=== PATIENT | male | born 1965 | race Caucasian/White ===

== ENCOUNTER 2019-12-10 08:16 | Inpatient (IN) ==
[2019-12-10] MEDS: Dexmedetomidine HCl 400 MCG/100 ML MLS IVC SCH ×3 (10:30→23:56)
[2019-12-10] MEDS ORDERED: 0.9 % Sodium Chloride 1,000 ML ONE (10:38)
[2019-12-10] MEDS ORDERED: Dexmedetomidine HCl 400 MCG/100 ML MLS IVC ONE (10:43)
[2019-12-10] MEDS ORDERED: Naloxone 0.4 MG/ML INJ IVP PRN (11:01)
[2019-12-10] MEDS ORDERED: Artificial Tears SOLN 15 ML BOTTLE BOTH EYES PRN (11:01)
[2019-12-10] MEDS ORDERED: 0.9 % Sodium Chloride 1,000 ML IVC SCH (11:15)
[2019-12-10] MEDS ORDERED: *HR* LORazepam 2 MG/ML VIAL ONE (11:16)
[2019-12-10 11:21] LABS: ABG Base Excess -9 mEq/L (-2 to 3); ABG HCO3 18 mEq/L (21-27); ABG Oxygen Saturation 93 % (95-98); ABG PCO2 38 mmHg (35-45); ABG PH 7.27 pH Units (7.32-7.45); ABG PO2 75 mmHg (85-104); ABG TCO2 19 mEq/L (20-26); Blood Gas Modality AF; Blood Gas VT 550 cc
[2019-12-10] MEDS: Norepinephrine 4 MG/254 ML IV.SOLN IVC SCH ×3 (11:40→17:55)
[2019-12-10] MEDS ORDERED: *HR* Midazolam HCl 5 MG/5 ML VIAL IVP ONE ×3 (12:19→12:54)
[2019-12-10] MEDS ORDERED: 0.9 % Sodium Chloride 1,000 ML IVC ONE (12:20)
[2019-12-10] MEDS ORDERED: Sodium Bicarbonate 50 MEQ/50 ML VIAL ONE (12:45)
[2019-12-10] MEDS: FentaNYL (PF) 1,000 MCG/100 ML IV.SOLN IVC SCH ×2 (12:58→19:20)
[2019-12-10] MEDS ORDERED: levoFLOXacin 750 MG/150 ML 750 MG/150 ML BAG IVPB SCH (13:00)
[2019-12-10] MEDS ORDERED: Azithromycin 500 MG in 0.9 % Sodium Chloride 250 ML IVPB SCH (13:00)
[2019-12-10 13:28] LABS: ABG Base Excess -10 mEq/L (-2 to 3); ABG HCO3 16 mEq/L (21-27); ABG Oxygen Saturation 99 % (95-98); ABG PCO2 34 mmHg (35-45); ABG PH 7.28 pH Units (7.32-7.45); ABG PO2 138 mmHg (85-104); ABG TCO2 17 mEq/L (20-26); Blood Gas Modality AF; Blood Gas VT 500 cc
[2019-12-10] MEDS ORDERED: *HR* Heparin 5,000 UNIT/ML VIAL SQ SCH (14:00)
[2019-12-10] MEDS: Artificial Tears SOLN 15 ML BOTTLE BOTH EYES SCH ×4 (14:06→23:23)
[2019-12-10 14:14] LABS: Basophils % 0.1 %; Eosinophils % 0.1 %; Hemoglobin 13.6 g/dL (12.9-16.9); Immature Granulocytes % 1.9 % (0-4); Lymphocytes # 1.4 K/mcL (0.6-4.6); Lymphocytes % 9.9 %; Mean Corpuscular HGB Conc 30.9 g/dL (31.6-35.5); Mean Corpuscular Hemoglobin 30.5 pg (28.0-33.3); Mean Corpuscular Volume 98.7 fL (83.0-100.0); Mean Platelet Volume 10.3 fL (9.4-12.4); Monocytes # 0.7 K/mcL (0.0-1.3); Monocytes % 4.7 %; Neutrophils # 12.1 K/mcL (1.6-8.9); Platelet Count 173 K/mcL (140-400); Red Blood Count 4.46 M/mcL (4.19-5.50); Red Cell Distribution Width 13.1 % (11.5-14.5); Segmented Neutrophils % 83.3 %; White Blood Count 14.6 K/mcL (4.3-11.1)
[2019-12-10 14:15] LABS: Adenovirus F 40/41 PCR Not detected (Not detect); Astrovirus PCR Not detected (Not detect); C.difficile Toxin A/B Gene PCR Not detected (Not detect); Campylobacter by PCR Not detected (Not detect); Cryptosporidium by PCR Not detected (Not detect); Cyclospora cayetanensis PCR Not detected (Not detect); E. coli O157 by PCR Not detected (Not detect); Entamoeba histolytica PCR Not detected (Not detect); Enteroaggregative E.coli(EAEC) Not detected (Not detect); Enteropathogenic E.coli(EPEC) Not detected (Not detect); Enterotoxigenic E.coli (ETEC) Not detected (Not detect); Giardia lamblia PCR Not detected (Not detect); Norovirus GI/GII PCR Not detected (Not detect); Plesiomonas shigelloides PCR Not detected (Not detect); Rotavirus A PCR Not detected (Not detect); Salmonella PCR Not detected (Not detect); Sapovirus PCR Not detected (Not detect); Shig/EnteroinvasiveE coli EIEC Not detected (Not detect); Shigalike tox-prod E coli STEC Not detected (Not detect); Vibrio PCR Not detected (Not detect); Vibrio cholerae PCR Not detected (Not detect); Yersinia enterocolitica PCR Not detected (Not detect)
[2019-12-10 14:24] LABS: INR 1.1; Prothrombin Time 12.3 Seconds (9.4-12.1)
[2019-12-10 14:27] LABS: Activated Partial Thrombo Time 28.9 Seconds (26.0-36.0)
[2019-12-10] MEDS ORDERED: Calcium Chloride 2,000 MG in 0.9 % Sodium Chloride 100 ML IVPB ONE (14:31)
[2019-12-10] MEDS ORDERED: Thiamine (B-1) 100 MG in 0.9 % Sodium Chloride 50 ML IVPB STA (14:31)
[2019-12-10 14:40] LABS: BUN/Creatinine Ratio 12 (6-26); Blood Urea Nitrogen 26 mg/dL (6-20); Calcium 6.2 mg/dL (8.6-10.3); Carbon Dioxide 17 mEq/L (23-29); Chloride 115 mEq/L (98-107); Ethanol < 10 mg/dL (Less than 10); Glucose 93 mg/dL (70-105); Magnesium 1.9 mg/dL (1.6-2.6); Osmolality,Calculated 302 (280-300); Phosphorous 3.7 mg/dL (2.7-4.5); Potassium 5.1 mEq/L (3.5-5.1); Sodium 144 mEq/L (136-145); eGFR For African Americans 40 (> 60); eGFR For Non-African Americans 33 (> 60)
[2019-12-10] MEDS: Pantoprazole 40 MG VIAL IVP SCH (14:48)
[2019-12-10 15:07] LABS: Alanine Aminotransferase 58 Units/L (7-52); Albumin 2.8 g/dL (3.5-5.7); Albumin/Globulin Ratio 1.3 (1.1-2.2); Alkaline Phosphatase 59 Units/L (34-104); Aspartate Amino Transferase 127 Units/L (13-39); Bilirubin,Direct 0.2 mg/dL (0.0-0.2); Bilirubin,Indirect 0.3 mg/dL (0.0-1.0); Bilirubin,Total 0.5 mg/dL (0.3-1.0); Globulin 2.1 g/dL (2.4-3.5); Lipase 23 Units/L (11-82); Total Protein 4.9 g/dL (6.4-8.9); Troponin I 3.66 ng/mL (< 0.04)
[2019-12-10] MEDS ORDERED: Aspirin 81 MG TAB.CHEW GTUBE ONE (15:08)
[2019-12-10] MEDS ORDERED: *HR* Heparin 5,000 UNIT/ML VIAL IVP PRN ×2 (15:08)
[2019-12-10] MEDS ORDERED: *HR* Heparin 5,000 UNIT/ML VIAL IVP ONE (15:08)
[2019-12-10 15:09] LABS: ABG Base Excess -16 mEq/L (-2 to 3); ABG HCO3 13 mEq/L (21-27); ABG Oxygen Saturation 93 % (95-98); ABG PCO2 39 mmHg (35-45); ABG PH 7.13 pH Units (7.32-7.45); ABG PO2 87 mmHg (85-104); ABG TCO2 14 mEq/L (20-26); Blood Gas Modality AF; Blood Gas VT 500 cc
[2019-12-10] MEDS ORDERED: Sodium Bicarbonate 50 MEQ/50 ML VIAL IVP ONE (15:09)
[2019-12-10] MEDS: EPINEPHrine 1 MG in D5% in Water 250 ML IVC SCH ×2 (15:13→21:20)
[2019-12-10 15:37] LABS: VBG HCO3 14 mEq/L (21-27); VBG PCO2 63 mmHg (41-51); VBG PH 6.96 pH Units (7.32-7.42); VBG PO2 50 mmHg (25-50)
[2019-12-10] MEDS: Heparin 25,000 UNIT/250 ML D5W 25,000 UNIT/250 ML IV.SOLN IVC SCH (15:43)
[2019-12-10] MEDS: Hydrocortisone Sodium Succ 100 MG/2 ML VIAL IVP SCH ×2 (16:49→23:30)
[2019-12-10] MEDS: Aztreonam 1,000 MG in Water for inj. (sterile) 10 ML IVP SCH ×2 (16:49→23:27)
[2019-12-10] MEDS: MetroNIDAZOLE 500 MG/100 ML 500 MG/100 ML BAG IVPB SCH ×2 (16:52→23:33)
[2019-12-10 17:17] LABS: Hematocrit 41.1 % (37.5-50.1); Hemoglobin 12.9 g/dL (12.9-16.9); Mean Corpuscular HGB Conc 31.4 g/dL (31.6-35.5); Mean Corpuscular Hemoglobin 30.8 pg (28.0-33.3); Mean Corpuscular Volume 98.1 fL (83.0-100.0); Mean Platelet Volume 10.8 fL (9.4-12.4); Platelet Count 161 K/mcL (140-400); Red Blood Count 4.19 M/mcL (4.19-5.50); Red Cell Distribution Width 13.2 % (11.5-14.5); White Blood Count 19.2 K/mcL (4.3-11.1)
[2019-12-10 17:25] LABS: Heparin anti-factor XA UFH 0.9 IU/mL (0.30-0.70); INR 1.2
[2019-12-10] MEDS: Chlorhexidine Rinse 15 ML MOUTHWASH MM SCH (20:05)
[2019-12-10] MEDS ORDERED: 0.9 % Sodium Chloride 500 ML IVC ONE (20:43)
[2019-12-10] MEDS ORDERED: 0.9 % Sodium Chloride 500 ML IVC SCH (20:45)
[2019-12-10] MEDS: Norepinephrine 8 MG in 0.9 % Sodium Chloride 250 ML IVC SCH (20:50)
[2019-12-11] MEDS: FentaNYL (PF) 1,000 MCG/100 ML IV.SOLN IVC SCH ×5 (00:05→20:15)
[2019-12-11] MEDS: EPINEPHrine 1 MG in D5% in Water 250 ML IVC SCH (01:55)
[2019-12-11] MEDS ORDERED: 0.9 % Sodium Chloride 1,000 ML IVC SCH (02:15)
[2019-12-11] MEDS: Artificial Tears SOLN 15 ML BOTTLE BOTH EYES SCH ×5 (03:31→21:14)
[2019-12-11 04:07] LABS: ABG Base Excess -16 mEq/L (-2 to 3); ABG HCO3 14 mEq/L (21-27); ABG Oxygen Saturation 98 % (95-98); ABG PCO2 44 mmHg (35-45); ABG PO2 145 mmHg (85-104); ABG TCO2 15 mEq/L (20-26); Blood Gas Modality AF; Blood Gas VT 500 cc
[2019-12-11 04:19] LABS: Basophils % 0.2 %; INR 1.3; Lymphocytes % 4.9 %; Mean Corpuscular HGB Conc 32.3 g/dL (31.6-35.5); Mean Corpuscular Hemoglobin 31.2 pg (28.0-33.3); Monocytes % 3.6 %; Prothrombin Time 14.7 Seconds (9.4-12.1); Red Cell Distribution Width 13.2 % (11.5-14.5)
[2019-12-11 04:21] LABS: Basophils # 0.1 K/mcL (0.0-0.2); Eosinophils # 0.2 K/mcL (0.0-0.6); Eosinophils % 0.6 %; Hematocrit 43.1 % (37.5-50.1); Hemoglobin 13.9 g/dL (12.9-16.9); Immature Granulocytes % 1.3 % (0-4); Lymphocytes # 1.3 K/mcL (0.6-4.6); Mean Corpuscular Volume 96.9 fL (83.0-100.0); Mean Platelet Volume 11.2 fL (9.4-12.4); Neutrophils # 24.1 K/mcL (1.6-8.9); Platelet Count 187 K/mcL (140-400); Red Blood Count 4.45 M/mcL (4.19-5.50); Segmented Neutrophils % 89.4 %
[2019-12-11 04:54] LABS: Albumin/Globulin Ratio 1.3 (1.1-2.2); Bilirubin,Total 0.4 mg/dL (0.3-1.0); Calcium 7.1 mg/dL (8.6-10.3); Globulin 2.4 g/dL (2.4-3.5); Magnesium 1.8 mg/dL (1.6-2.6); Phosphorous 4.8 mg/dL (2.7-4.5); Potassium 5.4 mEq/L (3.5-5.1); Total Protein 5.4 g/dL (6.4-8.9)
[2019-12-11 05:03] LABS: Platelet Estimate Normal (Normal)
[2019-12-11] MEDS: Norepinephrine 8 MG in 0.9 % Sodium Chloride 250 ML IVC SCH (07:27)
[2019-12-11] MEDS ORDERED: Calcium Gluconate 1gm/50mL 1 GM/50 ML BAG IVPB ONE (07:46)
[2019-12-11] MEDS ORDERED: Calcium Chloride 1,000 MG in 0.9 % Sodium Chloride 100 ML IVPB ONE (08:01)
[2019-12-11] MEDS: Hydrocortisone Sodium Succ 100 MG/2 ML VIAL IVP SCH ×3 (08:02→23:57)
[2019-12-11] MEDS: Dexmedetomidine HCl 400 MCG/100 ML MLS IVC SCH (08:02)
[2019-12-11] MEDS: Pantoprazole 40 MG VIAL IVP SCH ×2 (08:02→21:14)
[2019-12-11] MEDS: Chlorhexidine Rinse 15 ML MOUTHWASH MM SCH ×2 (08:03→21:14)
[2019-12-11 08:25] LABS: Blood Gas VT 500 cc; Mixed Venous Blood pCO2 46 mmHg (44-46); Mixed Venous Blood pH 7.22 pH Units (7.34-7.36); Mixed Venous Blood pO2 44 mmHg (35-45)
[2019-12-11] MEDS: Thiamine (B-1) 100 MG in 0.9 % Sodium Chloride 50 ML IVPB SCH (08:37)
[2019-12-11] MEDS: Midazolam HCl 50 MG/100 ML IV.SOLN IVC SCH (08:44)
[2019-12-11] MEDS: Meropenem 1,000 MG in 0.9 % Sodium Chloride Mini Bag 100 ML IVPB SCH ×2 (10:22→17:31)
[2019-12-11 10:56] LABS: Estimated Average Glucose 120 mg/dl
[2019-12-11 11:20] LABS: Calcium 7.6 mg/dL (8.6-10.3); Potassium 5.2 mEq/L (3.5-5.1); Troponin I 2.8 ng/mL (< 0.04)
[2019-12-11] MEDS: Sodium Bicarbonate 150 MEQ in D5% in Water 1,000 ML IVC SCH (11:43)
[2019-12-11 18:27] LABS: Calcium 7.7 mg/dL (8.6-10.3); Potassium 4.5 mEq/L (3.5-5.1)
[2019-12-11 18:30] LABS: Troponin I 2.1 ng/mL (< 0.04)
[2019-12-11 18:48] LABS: Hematocrit 35.4 % (37.5-50.1)
[2019-12-12] MEDS: Artificial Tears SOLN 15 ML BOTTLE BOTH EYES SCH ×7 (00:01→23:20)
[2019-12-12] MEDS: FentaNYL (PF) 1,000 MCG/100 ML IV.SOLN IVC SCH ×2 (01:55→07:14)
[2019-12-12] MEDS: Sodium Bicarbonate 150 MEQ in D5% in Water 1,000 ML IVC SCH ×2 (03:45→11:32)
[2019-12-12 04:10] LABS: ABG Base Excess -1 mEq/L (-2 to 3); ABG HCO3 21 mEq/L (21-27); ABG Oxygen Saturation 99 % (95-98); ABG PCO2 27 mmHg (35-45); ABG PO2 103 mmHg (85-104); ABG TCO2 22 mEq/L (20-26); Blood Gas Modality AF; Blood Gas VT 500 cc
[2019-12-12] MEDS: Heparin 25,000 UNIT/250 ML D5W 25,000 UNIT/250 ML IV.SOLN IVC SCH ×2 (04:52→11:31)
[2019-12-12 05:02] LABS: Albumin 2.4 g/dL (3.5-5.7); Albumin/Globulin Ratio 1.3 (1.1-2.2); Bilirubin,Direct 0.2 mg/dL (0.0-0.2); Bilirubin,Indirect 0.4 mg/dL (0.0-1.0); Bilirubin,Total 0.6 mg/dL (0.3-1.0); Calcium 7.4 mg/dL (8.6-10.3); Globulin 1.9 g/dL (2.4-3.5); Magnesium 1.7 mg/dL (1.6-2.6); Phosphorous 1.6 mg/dL (2.7-4.5); Potassium 3.9 mEq/L (3.5-5.1); Total Protein 4.3 g/dL (6.4-8.9); Troponin I 1.37 ng/mL (< 0.04)
[2019-12-12] MEDS: Meropenem 1,000 MG in 0.9 % Sodium Chloride Mini Bag 100 ML IVPB SCH ×2 (05:02→17:23)
[2019-12-12 05:53] LABS: Hematocrit 32.6 % (37.5-50.1); Hemoglobin 11.1 g/dL (12.9-16.9); Mean Corpuscular Hemoglobin 30.7 pg (28.0-33.3); Mean Corpuscular Volume 90.1 fL (83.0-100.0); Mean Platelet Volume 11.4 fL (9.4-12.4); Platelet Count 121 K/mcL (140-400); Red Blood Count 3.62 M/mcL (4.19-5.50); Red Cell Distribution Width 13.2 % (11.5-14.5)
[2019-12-12 06:22] LABS: Monocytes # 0.6 K/mcL (0.0-1.3); Neutrophils # 11.5 K/mcL (1.6-8.9); Platelet Estimate Slight Decrease (Normal)
[2019-12-12] MEDS ORDERED: Albumin 25% 25gram/100mL 25 GM/100 ML IV.SOLN IVPB ONE (06:59)
[2019-12-12] MEDS ORDERED: Calcium Chloride 1,000 MG in 0.9 % Sodium Chloride 100 ML IVPB ONE (07:00)
[2019-12-12] MEDS ORDERED: Potassium Phosphate 44 MEQ in 0.9 % Sodium Chloride 250 ML IVPB ONE (07:00)
[2019-12-12] MEDS: Midazolam HCl 50 MG/100 ML IV.SOLN IVC SCH (07:13)
[2019-12-12] MEDS: Pantoprazole 40 MG VIAL IVP SCH ×2 (07:42→21:22)
[2019-12-12] MEDS: Hydrocortisone Sodium Succ 100 MG/2 ML VIAL IVP SCH ×3 (07:42→23:21)
[2019-12-12] MEDS: Chlorhexidine Rinse 15 ML MOUTHWASH MM SCH ×2 (07:42→21:22)
[2019-12-12] MEDS: Thiamine (B-1) 100 MG in 0.9 % Sodium Chloride 50 ML IVPB SCH (09:00)
[2019-12-12 10:00] LABS: ABG Base Excess 0 mEq/L (-2 to 3); ABG HCO3 25 mEq/L (21-27); ABG Oxygen Saturation 98 % (95-98); ABG PCO2 39 mmHg (35-45); ABG PO2 99 mmHg (85-104); ABG TCO2 26 mEq/L (20-26); Blood Gas Modality ASSIST CONTROL; Blood Gas VT 500 cc
[2019-12-12] MEDS: Albumin Human 5% 12.5 GM/250 ML IV.SOLN IVPB ONE ×3 (11:29→17:01)
[2019-12-12] MEDS ORDERED: Norepinephrine 4 MG/254 ML IV.SOLN IVC SCH (11:30)
[2019-12-12 11:35] LABS: Hematocrit 32.5 % (37.5-50.1); Hemoglobin 10.9 g/dL (12.9-16.9)
[2019-12-12] MEDS: FentaNYL (PF) 2,500 MCG/50 ML IV.SOLN IVC SCH (11:40)
[2019-12-12] MEDS ORDERED: levoFLOXacin 750 MG/150 ML 750 MG/150 ML BAG IVPB SCH (14:00)
[2019-12-12] MEDS ORDERED: Furosemide 20 MG/2 ML VIAL IVP ONE (15:51)
[2019-12-12] MEDS ORDERED: Albumin Human 5% 25.0 GM/500 ML IV.SOLN ONE (15:55)
[2019-12-12] MEDS: Pantoprazole 40 MG in 0.9 % Sodium Chloride Mini Bag 100 ML IVC SCH ×2 (16:17→21:23)
[2019-12-12] MEDS: Norepinephrine 8 MG in 0.9 % Sodium Chloride 250 ML IVC SCH (20:14)
[2019-12-13] MEDS: FentaNYL (PF) 2,500 MCG/50 ML IV.SOLN IVC SCH (02:23)
[2019-12-13] MEDS: Midazolam HCl 50 MG/100 ML IV.SOLN IVC SCH (02:24)
[2019-12-13] MEDS: Pantoprazole 40 MG in 0.9 % Sodium Chloride Mini Bag 100 ML IVC SCH ×5 (03:06→23:07)
[2019-12-13] MEDS: Artificial Tears SOLN 15 ML BOTTLE BOTH EYES SCH ×3 (03:06→12:16)
[2019-12-13 04:07] LABS: Albumin 3.1 g/dL (3.5-5.7); Albumin/Globulin Ratio 1.5 (1.1-2.2); Bilirubin,Direct 0.3 mg/dL (0.0-0.2); Bilirubin,Indirect 0.6 mg/dL (0.0-1.0); Bilirubin,Total 0.9 mg/dL (0.3-1.0); Calcium 7.7 mg/dL (8.6-10.3); Globulin 2.1 g/dL (2.4-3.5); Magnesium 1.9 mg/dL (1.6-2.6); Total Protein 5.2 g/dL (6.4-8.9)
[2019-12-13] MEDS: Meropenem 1,000 MG in 0.9 % Sodium Chloride Mini Bag 100 ML IVPB SCH ×2 (05:18→17:04)
[2019-12-13 05:26] LABS: ABG Base Excess 0 mEq/L (-2 to 3); ABG HCO3 24 mEq/L (21-27); ABG Oxygen Saturation 99 % (95-98); ABG PCO2 35 mmHg (35-45); ABG PH 7.44 pH Units (7.32-7.45); ABG PO2 127 mmHg (85-104); ABG TCO2 25 mEq/L (20-26); Blood Gas Modality AF; Blood Gas VT 500 cc
[2019-12-13] MEDS: Hydrocortisone Sodium Succ 100 MG/2 ML VIAL IVP SCH (07:33)
[2019-12-13] MEDS: Thiamine (B-1) 100 MG in 0.9 % Sodium Chloride 50 ML IVPB SCH (07:33)
[2019-12-13] MEDS: Pantoprazole 40 MG VIAL IVP SCH (07:33)
[2019-12-13] MEDS: Chlorhexidine Rinse 15 ML MOUTHWASH MM SCH (07:33)
[2019-12-13 07:38] LABS: Basophils % 0.1 %
[2019-12-13 07:40] LABS: Hemoglobin 11.2 g/dL (12.9-16.9); Immature Platelets 7.3 % (1.1-6.1); Red Cell Distribution Width 13.5 % (11.5-14.5)
[2019-12-13 07:49] LABS: Immature Granulocytes % 2.1 % (0-4); Lymphocytes # 1.2 K/mcL (0.6-4.6); Lymphocytes % 8.5 %; Mean Corpuscular HGB Conc 32.9 g/dL (31.6-35.5); Mean Corpuscular Hemoglobin 30.6 pg (28.0-33.3); Mean Corpuscular Volume 92.9 fL (83.0-100.0); Mean Platelet Volume 11.9 fL (9.4-12.4); Monocytes # 0.9 K/mcL (0.0-1.3); Monocytes % 6.4 %; Neutrophils # 11.6 K/mcL (1.6-8.9); Platelet Count 126 K/mcL (140-400); Red Blood Count 3.66 M/mcL (4.19-5.50); Segmented Neutrophils % 82.9 %
[2019-12-13] MEDS: Furosemide 20 MG/2 ML VIAL IVP SCH (08:12)
[2019-12-13] MEDS: *HR* LORazepam 2 MG/ML VIAL IVP PRN ×4 (08:31→20:59)
[2019-12-13] MEDS ORDERED: *HR* Heparin 5,000 UNIT/ML VIAL SQ SCH (14:00)
[2019-12-13] MEDS: *HR* Heparin 5,000 UNIT/ML VIAL SQ SCH ×2 (14:26→20:59)
[2019-12-13] MEDS ORDERED: Haloperidol Lactate 5 MG/ML VIAL IVP ONE (21:22)
[2019-12-14] MEDS: Pantoprazole 40 MG in 0.9 % Sodium Chloride Mini Bag 100 ML IVC SCH ×2 (04:01→09:00)
[2019-12-14] MEDS: *HR* Heparin 5,000 UNIT/ML VIAL SQ SCH ×3 (05:12→21:03)
[2019-12-14] MEDS: Meropenem 1,000 MG in 0.9 % Sodium Chloride Mini Bag 100 ML IVPB SCH ×2 (05:12→16:59)
[2019-12-14 07:58] LABS: Basophils % 0.1 %; Eosinophils % 0.2 %; Hematocrit 32.1 % (37.5-50.1); Hemoglobin 10.6 g/dL (12.9-16.9); Immature Granulocytes % 0.6 % (0-4); Lymphocytes # 1.1 K/mcL (0.6-4.6); Lymphocytes % 12.6 %; Mean Corpuscular Hemoglobin 30.8 pg (28.0-33.3); Mean Corpuscular Volume 93.3 fL (83.0-100.0); Mean Platelet Volume 11.2 fL (9.4-12.4); Monocytes # 0.7 K/mcL (0.0-1.3); Monocytes % 8.3 %; Neutrophils # 6.7 K/mcL (1.6-8.9); Platelet Count 106 K/mcL (140-400); Red Blood Count 3.44 M/mcL (4.19-5.50); Red Cell Distribution Width 13.2 % (11.5-14.5); Segmented Neutrophils % 78.2 %; White Blood Count 8.5 K/mcL (4.3-11.1)
[2019-12-14] MEDS: Thiamine (B-1) 100 MG in 0.9 % Sodium Chloride 50 ML IVPB SCH (08:01)
[2019-12-14] MEDS: Furosemide 20 MG/2 ML VIAL IVP SCH (08:01)
[2019-12-14 08:13] LABS: Calcium 7.7 mg/dL (8.6-10.3); Potassium 3.2 mEq/L (3.5-5.1)
[2019-12-14] MEDS ORDERED: Naloxone 0.4 MG/ML INJ IVP PRN (12:03)
[2019-12-14 12:38] LABS: Albumin 3.2 g/dL (3.5-5.7); Albumin/Globulin Ratio 1.7 (1.1-2.2); Bilirubin,Direct 0.3 mg/dL (0.0-0.2); Bilirubin,Indirect 0.8 mg/dL (0.0-1.0); Bilirubin,Total 1.1 mg/dL (0.3-1.0); Globulin 1.9 g/dL (2.4-3.5); Total Protein 5.1 g/dL (6.4-8.9)
[2019-12-14] MEDS: Sucralfate 1 GM TABLET PO SCH ×2 (15:44→21:03)
[2019-12-14] MEDS: haloperidoL 1 MG TABLET PO SCH (21:03)
[2019-12-15] MEDS: Acetaminophen 325 MG TABLET PO PRN (02:21)
[2019-12-15] MEDS ORDERED: *HR* Atropine Sulfate 1 MG/10 ML SYRINGE ONE (04:36)
[2019-12-15] MEDS ORDERED: *HR* Atropine Sulfate 1 MG/10 ML SYRINGE IVP ONE (04:41)
[2019-12-15 05:08] LABS: Basophils % 0.1 %; Eosinophils # 0.1 K/mcL (0.0-0.6); Eosinophils % 0.6 %; Hematocrit 31.2 % (37.5-50.1); Hemoglobin 10.4 g/dL (12.9-16.9); Immature Granulocytes % 0.7 % (0-4); Lymphocytes # 1.4 K/mcL (0.6-4.6); Lymphocytes % 16.9 %; Mean Corpuscular HGB Conc 33.3 g/dL (31.6-35.5); Mean Corpuscular Hemoglobin 30.5 pg (28.0-33.3); Mean Corpuscular Volume 91.5 fL (83.0-100.0); Mean Platelet Volume 11.3 fL (9.4-12.4); Monocytes # 0.9 K/mcL (0.0-1.3); Monocytes % 10.3 %; Neutrophils # 5.9 K/mcL (1.6-8.9); Platelet Count 118 K/mcL (140-400); Red Blood Count 3.41 M/mcL (4.19-5.50); Red Cell Distribution Width 13.2 % (11.5-14.5); Segmented Neutrophils % 71.4 %; White Blood Count 8.3 K/mcL (4.3-11.1)
[2019-12-15 05:13] LABS: Calcium 7.8 mg/dL (8.6-10.3); Potassium 3.1 mEq/L (3.5-5.1)
[2019-12-15] MEDS: Meropenem 1,000 MG in 0.9 % Sodium Chloride Mini Bag 100 ML IVPB SCH ×3 (05:56→22:08)
[2019-12-15] MEDS: *HR* Heparin 5,000 UNIT/ML VIAL SQ SCH ×3 (05:56→22:09)
[2019-12-15] MEDS: Sucralfate 1 GM TABLET PO SCH ×4 (08:38→22:08)
[2019-12-15] MEDS: haloperidoL 1 MG TABLET PO SCH ×2 (08:38→22:08)
[2019-12-15] MEDS ORDERED: Furosemide 20 MG/2 ML VIAL IVP SCH (09:00)
[2019-12-15] MEDS: Thiamine (B-1) 100 MG in 0.9 % Sodium Chloride 50 ML IVPB SCH (11:11)
[2019-12-15] MEDS: D5% in Water 1,000 ML IVC SCH ×2 (11:20→22:07)
[2019-12-16 03:43] LABS: Basophils % 0.1 %; Eosinophils # 0.3 K/mcL (0.0-0.6); Eosinophils % 3.4 %; Hematocrit 30.3 % (37.5-50.1); Hemoglobin 10.2 g/dL (12.9-16.9); Immature Granulocytes % 1.4 % (0-4); Lymphocytes # 1.4 K/mcL (0.6-4.6); Lymphocytes % 19.5 %; Mean Corpuscular HGB Conc 33.7 g/dL (31.6-35.5); Mean Corpuscular Hemoglobin 30.4 pg (28.0-33.3); Mean Corpuscular Volume 90.2 fL (83.0-100.0); Mean Platelet Volume 11.3 fL (9.4-12.4); Monocytes # 0.9 K/mcL (0.0-1.3); Monocytes % 12.7 %; Neutrophils # 4.6 K/mcL (1.6-8.9); Platelet Count 117 K/mcL (140-400); Red Blood Count 3.36 M/mcL (4.19-5.50); Red Cell Distribution Width 12.9 % (11.5-14.5); Segmented Neutrophils % 62.9 %; White Blood Count 7.3 K/mcL (4.3-11.1)
[2019-12-16 04:05] LABS: BUN/Creatinine Ratio 24 (6-26); Blood Urea Nitrogen 31 mg/dL (6-20); Calcium 7.2 mg/dL (8.6-10.3); Carbon Dioxide 25 mEq/L (23-29); Chloride 110 mEq/L (98-107); Glucose 107 mg/dL (70-105); Osmolality,Calculated 299 (280-300); Sodium 141 mEq/L (136-145); eGFR For African Americans > 60 (> 60); eGFR For Non-African Americans 59 (> 60)
[2019-12-16] MEDS: Meropenem 1,000 MG in 0.9 % Sodium Chloride Mini Bag 100 ML IVPB SCH ×3 (06:30→22:00)
[2019-12-16] MEDS: *HR* Heparin 5,000 UNIT/ML VIAL SQ SCH ×3 (06:32→22:01)
[2019-12-16] MEDS ORDERED: Potassium Chloride Elixir 20 MEQ/15 ML UDC PO ONE (07:33)
[2019-12-16] MEDS: Sucralfate 1 GM TABLET PO SCH ×4 (08:06→22:01)
[2019-12-16] MEDS: Thiamine (B-1) 100 MG in 0.9 % Sodium Chloride 50 ML IVPB SCH (08:13)
[2019-12-16] MEDS: D5% in Water 1,000 ML IVC SCH (08:20)
[2019-12-16 08:30] LABS: Alanine Aminotransferase 51 Units/L (7-52); Albumin 3.1 g/dL (3.5-5.7); Albumin/Globulin Ratio 1.6 (1.1-2.2); Alkaline Phosphatase 42 Units/L (34-104); Aspartate Amino Transferase 47 Units/L (13-39); Bilirubin,Direct 0.3 mg/dL (0.0-0.2); Bilirubin,Indirect 0.9 mg/dL (0.0-1.0); Bilirubin,Total 1.2 mg/dL (0.3-1.0); Creatine Kinase 788 Units/L (30-223); Globulin 1.9 g/dL (2.4-3.5)
[2019-12-16] MEDS ORDERED: QUEtiapine Fumarate 25 MG TABLET PO SCH (21:00)
[2019-12-17] MEDS ORDERED: Benzonatate 100 MG CAPSULE PO PRN (00:53)
[2019-12-17 02:27] LABS: Basophils % 0.2 %; Eosinophils # 0.4 K/mcL (0.0-0.6); Eosinophils % 6.2 %; Hematocrit 33.6 % (37.5-50.1); Hemoglobin 11.3 g/dL (12.9-16.9); Immature Granulocytes % 1.1 % (0-4); Lymphocytes # 1.3 K/mcL (0.6-4.6); Lymphocytes % 20.1 %; Mean Corpuscular HGB Conc 33.6 g/dL (31.6-35.5); Mean Corpuscular Volume 92.1 fL (83.0-100.0); Mean Platelet Volume 11.6 fL (9.4-12.4); Monocytes # 0.8 K/mcL (0.0-1.3); Monocytes % 12.7 %; Neutrophils # 3.8 K/mcL (1.6-8.9); Platelet Count 126 K/mcL (140-400); Red Blood Count 3.65 M/mcL (4.19-5.50); Red Cell Distribution Width 12.8 % (11.5-14.5); Segmented Neutrophils % 59.7 %; White Blood Count 6.3 K/mcL (4.3-11.1)
[2019-12-17 02:47] LABS: Alanine Aminotransferase 43 Units/L (7-52); Albumin 3.1 g/dL (3.5-5.7); Albumin/Globulin Ratio 1.4 (1.1-2.2); Alkaline Phosphatase 44 Units/L (34-104); Aspartate Amino Transferase 31 Units/L (13-39); BUN/Creatinine Ratio 21 (6-26); Blood Urea Nitrogen 23 mg/dL (6-20); Calcium 7.5 mg/dL (8.6-10.3); Carbon Dioxide 23 mEq/L (23-29); Chloride 111 mEq/L (98-107); Globulin 2.2 g/dL (2.4-3.5); Glucose 109 mg/dL (70-105); Magnesium 1.7 mg/dL (1.6-2.6); Osmolality,Calculated 298 (280-300); Sodium 142 mEq/L (136-145); Total Protein 5.3 g/dL (6.4-8.9); eGFR For African Americans > 60 (> 60); eGFR For Non-African Americans > 60 (> 60)
[2019-12-17] MEDS: Acetaminophen 325 MG TABLET PO PRN (04:48)
[2019-12-17] MEDS: Meropenem 1,000 MG in 0.9 % Sodium Chloride Mini Bag 100 ML IVPB SCH ×3 (06:42→22:16)
[2019-12-17] MEDS: *HR* Heparin 5,000 UNIT/ML VIAL SQ SCH ×4 (06:42→20:52)
[2019-12-17] MEDS: Sucralfate 1 GM TABLET PO SCH ×5 (08:30→20:52)
[2019-12-17] MEDS: Potassium Chloride Elixir 20 MEQ/15 ML UDC PO SCH ×2 (08:33→20:52)
[2019-12-17] MEDS: Thiamine (B-1) 100 MG in 0.9 % Sodium Chloride 50 ML IVPB SCH (15:02)
[2019-12-18] MEDS: *HR* Heparin 5,000 UNIT/ML VIAL SQ SCH (05:43)
[2019-12-18] MEDS: Meropenem 1,000 MG in 0.9 % Sodium Chloride Mini Bag 100 ML IVPB SCH (05:43)
[2019-12-18] MEDS: Sucralfate 1 GM TABLET PO SCH ×2 (08:21→11:36)
[2019-12-18] MEDS: Thiamine (B-1) 100 MG in 0.9 % Sodium Chloride 50 ML IVPB SCH (08:24)
[2019-12-18 14:19] VITALS: BP 142/78
== END 2019-12-18 14:09 | disposition home or self-care (01) | DRG 871 ==
LOC: ICNU 11:14 → SUATTDRO 11:14 → ICNU 11:23 → 2NNU 12-15 08:13 → 3NENU 12-17 09:55
PROVIDERS: ADMIT Family Medicine; ATTEND Internal Medicine
PROC: ENDOEBX (2019-12-12 18:30)

== ENCOUNTER 2020-07-02 20:40 | Observation (INO) ==
[2020-07-02 21:32] LABS: Basophils % 0.6 %; Eosinophils # 0.2 K/mcL (0.0-0.6); Eosinophils % 3.7 %; Hematocrit 36.4 % (37.5-50.1); Hemoglobin 11.9 g/dL (12.9-16.9); Immature Granulocytes % 0.2 % (0-4); Lymphocytes # 1.7 K/mcL (0.6-4.6); Lymphocytes % 26.6 %; Mean Corpuscular HGB Conc 32.7 g/dL (31.6-35.5); Mean Corpuscular Volume 91.7 fL (83.0-100.0); Mean Platelet Volume 10.7 fL (9.4-12.4); Monocytes # 0.9 K/mcL (0.0-1.3); Monocytes % 13.4 %; Neutrophils # 3.6 K/mcL (1.6-8.9); Platelet Count 226 K/mcL (140-400); Red Blood Count 3.97 M/mcL (4.19-5.50); Red Cell Distribution Width 12.3 % (11.5-14.5); Segmented Neutrophils % 55.5 %; White Blood Count 6.5 K/mcL (4.3-11.1)
[2020-07-02 21:37] LABS: Estimated Average Glucose 111 mg/dl; Hemoglobin A1C 5.5 %
[2020-07-02 21:47] LABS: BUN/Creatinine Ratio 19 (6-26); Blood Urea Nitrogen 16 mg/dL (6-20); Calcium 8.4 mg/dL (8.6-10.3); Carbon Dioxide 25 mEq/L (23-29); Chloride 104 mEq/L (98-107); Ethanol < 10 mg/dL (Less than 10); Glucose 92 mg/dL (70-105); Osmolality,Calculated 283 (280-300); Potassium 3.8 mEq/L (3.5-5.1); Sodium 136 mEq/L (136-145); eGFR For African Americans > 60 (> 60); eGFR For Non-African Americans > 60 (> 60)
[2020-07-02 21:50] LABS: Acetaminophen < 10 mcg/mL (10-20); Alanine Aminotransferase 11 Units/L (7-52); Albumin 3.8 g/dL (3.5-5.7); Albumin/Globulin Ratio 1.4 (1.1-2.2); Alkaline Phosphatase 61 Units/L (34-104); Aspartate Amino Transferase 19 Units/L (13-39); Bilirubin,Direct 0.3 mg/dL (0.0-0.2); Bilirubin,Indirect 0.7 mg/dL (0.0-1.0); Chol/HDL Ratio 2.8 (0-4.9); Cholesterol 119 mg/dL (< 200); Globulin 2.8 g/dL (2.4-3.5); HDL Cholesterol 42 mg/dL (40-59); LDL Cholesterol,Calculated 64 mg/dL (< 100); Salicylate < 2.5 mg/dL (15.0-30.0); Total Protein 6.6 g/dL (6.4-8.9); Triglycerides 65 mg/dL (< 150)
[2020-07-02 22:21] LABS: Bilirubin,Urine Negative (Negative); Blood,Urine Negative (Negative); Clarity,Urine Clear (Clear); Color,Urine Yellow (Yellow); Glucose,Urine (UA) 150 mg/dL (Normal); Ketones,Urine Negative (Negative); Leukocyte Esterase,Urine Negative (Negative); Mucus,Urine Few per lpf (None-Few); Nitrite,Urine Negative (Negative); Protein,Urine Trace mg/dL (Neg-Trace); RBC,Urine 0-3 per hpf (0-3); Specific Gravity,Urine > 1.030 (1.010-1.025); WBC,Urine 0-3 per hpf (0-3)
[2020-07-02 22:27] LABS: Amphetamine Screen,Urine Negative ng/mL (Cutoff=1000); Barbiturate Screen,Urine Negative ng/mL (Cutoff=200); Benzodiazepines Screen,Urine Negative ng/mL (Cutoff=200); Cannabinoid Screen,Urine Negative ng/mL (Cutoff = 50); Cocaine Screen,Urine Negative ng/mL (Cutoff= 300); Opiate Screen,Urine Negative ng/mL (Cutoff=300); Phencyclidine Screen,Urine Negative ng/mL (Cutoff=25)
[2020-07-03] MEDS ORDERED: hydrOXYzine pamoate 25 MG CAPSULE PO PRN (12:30)
[2020-07-03] MEDS ORDERED: Haloperidol Lactate 5 MG/ML VIAL IM PRN (12:30)
[2020-07-03] MEDS ORDERED: *HR* LORazepam 2 MG/ML VIAL IM PRN (12:30)
[2020-07-03] MEDS ORDERED: *HR* LORazepam 1 MG TABLET PO PRN (12:30)
[2020-07-03] MEDS ORDERED: Ibuprofen 400 MG TABLET PO PRN (12:30)
[2020-07-03] MEDS ORDERED: Mag Hydrox/Al Hydrox/Simeth 30 ML UDC PO PRN (12:30)
[2020-07-03] MEDS ORDERED: haloperidoL 5 MG TABLET PO PRN (12:30)
[2020-07-03] MEDS ORDERED: QUEtiapine Fumarate 25 MG TABLET PO PRN (12:30)
[2020-07-03] MEDS ORDERED: MOM Conc 10 ML UD.LIQ PO PRN (12:30)
[2020-07-04 08:41] VITALS: BP 113/67
== END 2020-07-04 19:05 | disposition home or self-care (01) ==
LOC: EMEROOARM 20:40 → INTOOBSV 07-03 12:20 → 1ANU 07-03 12:20
PROVIDERS: ADMIT Psychiatry & Neurology Psychiatry; ATTEND Psychiatry & Neurology Psychiatry

== ENCOUNTER 2020-07-15 21:37 | Inpatient (IN) ==
[2020-07-15 22:24] LABS: Basophils # 0.1 K/mcL (0.0-0.2); Basophils % 0.5 %; Eosinophils # 0.2 K/mcL (0.0-0.6); Eosinophils % 2.2 %; Immature Granulocytes % 0.5 % (0-4); Lymphocytes # 2.4 K/mcL (0.6-4.6); Lymphocytes % 21.6 %; Mean Corpuscular HGB Conc 32.6 g/dL (31.6-35.5); Mean Corpuscular Hemoglobin 30.1 pg (28.0-33.3); Mean Corpuscular Volume 92.5 fL (83.0-100.0); Mean Platelet Volume 10.1 fL (9.4-12.4); Monocytes # 1.1 K/mcL (0.0-1.3); Monocytes % 9.6 %; Neutrophils # 7.3 K/mcL (1.6-8.9); Platelet Count 242 K/mcL (140-400); Red Blood Count 4.65 M/mcL (4.19-5.50); Red Cell Distribution Width 12.9 % (11.5-14.5); Segmented Neutrophils % 65.6 %; White Blood Count 11.1 K/mcL (4.3-11.1)
[2020-07-15 22:42] LABS: Bilirubin,Urine Negative (Negative); Blood,Urine Negative (Negative); Clarity,Urine Clear (Clear); Color,Urine Light-Yellow (Yellow); Glucose,Urine (UA) Normal (Normal); Ketones,Urine Negative (Negative); Leukocyte Esterase,Urine Negative (Negative); Nitrite,Urine Negative (Negative); PH,Urine 5.5 pH Units (5.0-8.0); Protein,Urine Negative (Neg-Trace); Specific Gravity,Urine 1.022 (1.010-1.025); Urobilinogen,Urine Normal (Normal)
[2020-07-15 22:46] LABS: Acetaminophen 11 mcg/mL (10-20); BUN/Creatinine Ratio 22 (6-26); Blood Urea Nitrogen 18 mg/dL (6-20); Carbon Dioxide 28 mEq/L (23-29); Chloride 101 mEq/L (98-107); Ethanol < 10 mg/dL (Less than 10); Glucose 96 mg/dL (70-105); Osmolality,Calculated 286 (280-300); Potassium 3.9 mEq/L (3.5-5.1); Salicylate < 2.5 mg/dL (15.0-30.0); Sodium 137 mEq/L (136-145); Troponin I < 0.03 ng/mL (< 0.04); eGFR For African Americans > 60 (> 60); eGFR For Non-African Americans > 60 (> 60)
[2020-07-15 22:48] LABS: Alanine Aminotransferase 25 Units/L (7-52); Albumin 4.2 g/dL (3.5-5.7); Albumin/Globulin Ratio 1.4 (1.1-2.2); Alkaline Phosphatase 63 Units/L (34-104); Aspartate Amino Transferase 18 Units/L (13-39); Bilirubin,Direct 0.1 mg/dL (0.0-0.2); Bilirubin,Indirect 0.3 mg/dL (0.0-1.0); Bilirubin,Total 0.4 mg/dL (0.3-1.0); Glucose 95 mg/dL (70-105); Lipase 13 Units/L (11-82); Total Protein 7.2 g/dL (6.4-8.9)
[2020-07-15 22:54] LABS: Amphetamine Screen,Urine Negative ng/mL (Cutoff=1000); Barbiturate Screen,Urine Negative ng/mL (Cutoff=200); Benzodiazepines Screen,Urine Negative ng/mL (Cutoff=200); Cannabinoid Screen,Urine Negative ng/mL (Cutoff = 50); Cocaine Screen,Urine Negative ng/mL (Cutoff= 300); Opiate Screen,Urine Negative ng/mL (Cutoff=300); Phencyclidine Screen,Urine Negative ng/mL (Cutoff=25)
[2020-07-16] MEDS ORDERED: Haloperidol Lactate 5 MG/ML VIAL IM PRN (01:45)
[2020-07-16] MEDS ORDERED: Acetaminophen 325 MG TABLET PO PRN (01:45)
[2020-07-16] MEDS ORDERED: haloperidoL 5 MG TABLET PO PRN (01:45)
[2020-07-16] MEDS ORDERED: *HR* LORazepam 2 MG/ML VIAL IM PRN (01:45)
[2020-07-16] MEDS ORDERED: *HR* LORazepam 1 MG TABLET PO PRN (01:45)
[2020-07-16] MEDS ORDERED: Mag Hydrox/Al Hydrox/Simeth 30 ML UDC PO PRN (01:45)
[2020-07-16] MEDS ORDERED: MOM Conc 10 ML UD.LIQ PO PRN (01:45)
[2020-07-17] MEDS: traZODone 50 MG TABLET PO PRN (20:18)
[2020-07-17] MEDS: ARIPiprazole 2 MG TABLET PO SCH (20:18)
[2020-07-17] MEDS: hydrOXYzine pamoate 25 MG CAPSULE PO PRN (20:18)
[2020-07-18] MEDS: hydrOXYzine pamoate 25 MG CAPSULE PO PRN (20:26)
[2020-07-18] MEDS: ARIPiprazole 2 MG TABLET PO SCH (20:26)
[2020-07-18] MEDS: traZODone 50 MG TABLET PO PRN (20:26)
[2020-07-19] MEDS: ARIPiprazole 2 MG TABLET PO SCH (20:47)
[2020-07-19] MEDS: traZODone 50 MG TABLET PO PRN (20:47)
[2020-07-19] MEDS: hydrOXYzine pamoate 25 MG CAPSULE PO PRN (20:47)
[2020-07-20] MEDS: traZODone 50 MG TABLET PO PRN (20:40)
[2020-07-20] MEDS: ARIPiprazole 2 MG TABLET PO SCH (20:40)
[2020-07-20] MEDS: hydrOXYzine pamoate 25 MG CAPSULE PO PRN (20:40)
[2020-07-21 08:29] VITALS: BP 108/75
== END 2020-07-21 19:20 | disposition home or self-care (01) ==
LOC: EMEROOARM 21:37 → 1ANU 07-16 01:43
PROVIDERS: ADMIT Psychiatry & Neurology Forensic Psychiatry; ATTEND Psychiatry & Neurology Forensic Psychiatry

== ENCOUNTER 2020-10-02 09:16 | Inpatient (IN) ==
[2020-10-02 09:56] LABS: Basophils % 0.4 %; Eosinophils # 0.1 K/mcL (0.0-0.6); Eosinophils % 1.5 %; Hematocrit 42.3 % (37.5-50.1); Hemoglobin 14.2 g/dL (12.9-16.9); Immature Granulocytes % 0.2 % (0-4); Lymphocytes # 1.5 K/mcL (0.6-4.6); Mean Corpuscular HGB Conc 33.6 g/dL (31.6-35.5); Mean Corpuscular Hemoglobin 30.2 pg (28.0-33.3); Mean Platelet Volume 10.3 fL (9.4-12.4); Monocytes # 1.2 K/mcL (0.0-1.3); Monocytes % 15.4 %; Neutrophils # 5.2 K/mcL (1.6-8.9); Platelet Count 182 K/mcL (140-400); Red Cell Distribution Width 12.5 % (11.5-14.5); Segmented Neutrophils % 64.5 %
[2020-10-02 10:00] LABS: Estimated Average Glucose 108 mg/dl; Hemoglobin A1C 5.4 %
[2020-10-02 10:16] LABS: Acetaminophen < 10 mcg/mL (10-20); Alanine Aminotransferase 13 Units/L (7-52); Albumin 4.7 g/dL (3.5-5.7); Albumin/Globulin Ratio 1.5 (1.1-2.2); Alkaline Phosphatase 72 Units/L (34-104); Aspartate Amino Transferase 20 Units/L (13-39); BUN/Creatinine Ratio 21 (6-26); Bilirubin,Direct 0.4 mg/dL (0.0-0.2); Bilirubin,Indirect 1.6 mg/dL (0.0-1.0); Blood Urea Nitrogen 22 mg/dL (6-20); Calcium 9.5 mg/dL (8.6-10.3); Carbon Dioxide 26 mEq/L (23-29); Chloride 104 mEq/L (98-107); Chol/HDL Ratio 4.3 (0-4.9); Cholesterol 208 mg/dL (< 200); Ethanol < 10 mg/dL (Less than 10); Globulin 3.1 g/dL (2.4-3.5); Glucose 92 mg/dL (70-105); HDL Cholesterol 48 mg/dL (40-59); LDL Cholesterol,Calculated 145 mg/dL (< 100); Osmolality,Calculated 291 (280-300); Potassium 4.4 mEq/L (3.5-5.1); Salicylate < 2.5 mg/dL (15.0-30.0); Sodium 139 mEq/L (136-145); Total Protein 7.8 g/dL (6.4-8.9); Triglycerides 74 mg/dL (< 150); Troponin I < 0.03 ng/mL (< 0.04); eGFR For African Americans > 60 (> 60); eGFR For Non-African Americans > 60 (> 60)
[2020-10-02 10:27] LABS: Thyroid Stimulating Hormone 5.326 mcIU/mL (0.340-5.600)
[2020-10-02 12:12] LABS: Bilirubin,Urine Negative (Negative); Blood,Urine Moderate (Negative); Clarity,Urine Clear (Clear); Color,Urine Yellow (Yellow); Glucose,Urine (UA) Normal (Normal); Ketones,Urine 40 mg/dL (Negative); Leukocyte Esterase,Urine Negative (Negative); Mucus,Urine Few per lpf (None-Few); Nitrite,Urine Negative (Negative); PH,Urine 5.5 pH Units (5.0-8.0); Protein,Urine Trace mg/dL (Neg-Trace); RBC,Urine TNTC per hpf (0-3); Specific Gravity,Urine 1.027 (1.010-1.025); Urobilinogen,Urine Normal (Normal); WBC,Urine 0-3 per hpf (0-3)
[2020-10-02 12:25] LABS: Amphetamine Screen,Urine Positive ng/mL (Cutoff=1000); Barbiturate Screen,Urine Negative ng/mL (Cutoff=200); Benzodiazepines Screen,Urine Positive ng/mL (Cutoff=200); Cannabinoid Screen,Urine Positive ng/mL (Cutoff = 50); Cocaine Screen,Urine Negative ng/mL (Cutoff= 300); Opiate Screen,Urine Negative ng/mL (Cutoff=300); Phencyclidine Screen,Urine Negative ng/mL (Cutoff=25)
[2020-10-02] MEDS ORDERED: risperiDONE 1 MG TABLET PO ONE (16:21)
[2020-10-03] MEDS ORDERED: *HR* LORazepam 1 MG TABLET PO PRN (06:12)
[2020-10-03] MEDS ORDERED: Mag Hydrox/Al Hydrox/Simeth 30 ML UDC PO PRN (06:12)
[2020-10-03] MEDS ORDERED: *HR* LORazepam 2 MG/ML VIAL IM PRN (06:12)
[2020-10-03] MEDS ORDERED: haloperidoL 5 MG TABLET PO PRN (06:12)
[2020-10-03] MEDS ORDERED: traZODone 50 MG TABLET PO PRN (06:12)
[2020-10-03] MEDS ORDERED: MOM Conc 10 ML UD.LIQ PO PRN (06:12)
[2020-10-03] MEDS ORDERED: Haloperidol Lactate 5 MG/ML VIAL IM PRN (06:12)
[2020-10-03] MEDS ORDERED: ARIPiprazole 2 MG TABLET PO SCH (13:00)
[2020-10-03] MEDS: ARIPiprazole 2 MG TABLET PO SCH (20:43)
[2020-10-04] MEDS: Acetaminophen 325 MG TABLET PO PRN ×2 (17:34→20:46)
[2020-10-04] MEDS: ARIPiprazole 2 MG TABLET PO SCH (20:46)
[2020-10-05] MEDS: Acetaminophen 325 MG TABLET PO PRN ×2 (08:32→17:37)
[2020-10-05] MEDS: ARIPiprazole 2 MG TABLET PO SCH (20:13)
[2020-10-05] MEDS: hydrOXYzine pamoate 25 MG CAPSULE PO PRN (20:13)
[2020-10-06] MEDS: Acetaminophen 325 MG TABLET PO PRN (09:21)
[2020-10-06] MEDS: ARIPiprazole 2 MG TABLET PO SCH (20:25)
[2020-10-07] MEDS: ARIPiprazole 2 MG TABLET PO SCH (21:09)
[2020-10-08] MEDS: ARIPiprazole 2 MG TABLET PO SCH (20:48)
[2020-10-09] MEDS: ARIPiprazole 2 MG TABLET PO SCH (21:11)
[2020-10-09] MEDS: Acetaminophen 325 MG TABLET PO PRN (21:11)
[2020-10-10] MEDS: Acetaminophen 325 MG TABLET PO PRN (21:12)
[2020-10-10] MEDS: ARIPiprazole 2 MG TABLET PO SCH (21:12)
[2020-10-10] MEDS: hydrOXYzine pamoate 25 MG CAPSULE PO PRN (21:13)
[2020-10-11] MEDS: ARIPiprazole 2 MG TABLET PO SCH (20:41)
[2020-10-11] MEDS: Acetaminophen 325 MG TABLET PO PRN (20:41)
[2020-10-11] MEDS: hydrOXYzine pamoate 25 MG CAPSULE PO PRN (20:41)
[2020-10-12] MEDS: hydrOXYzine pamoate 25 MG CAPSULE PO PRN (21:36)
[2020-10-12] MEDS: ARIPiprazole 2 MG TABLET PO SCH (21:36)
[2020-10-13 08:45] VITALS: BP 122/86
== END 2020-10-13 18:00 | disposition other institution (70) | DRG 885 ==
LOC: 1ANU 09:16 → EMEROOARM 09:16 → 1ANU 10-03 08:17
PROVIDERS: ADMIT Psychiatry & Neurology Psychiatry; ATTEND Psychiatry & Neurology Psychiatry